=== PATIENT | female | born 1950 | race African-American/Black ===

== ENCOUNTER 2018-05-17 10:16 | Outpatient (RCR) | payer BC, MEDICARE, SELFPAY | END 2018-06-22 13:21 | disposition home or self-care (01) | LOC: PT 10:16 | PROVIDERS: Visit Provider Internal Medicine Cardiovascular Disease | DX: I25.10 Atherosclerotic heart disease of native coronary artery without angina pectoris (principal) | CPT/HCPCS: 93798 ==

== ENCOUNTER → 2018-06-06 14:04 | Outpatient (CLI) | payer BC, SELFPAY ==
--- NOTE | 2018-06-06 | CA_ITS ---
PROCEDURE: 2-D M-mode and color Doppler study INDICATIONS FOR THE TEST: Chest pain COPD Heart Murmur+ Tobacco Smoking Palpitations Fatigue Syncope Edema Hypertension+Diabetes Mellitus+ Rheumatic Fever SOB+MCCALLUM Obesity Hyperlipidemia+ Family History HD+ Additional History CAD, MV repair & TV repair done 02/2018 PATIENT INFORMATION HEIGHT: 62 WEIGHT: 157 GENDER: Female B/P: 130/86 2-D/M-MODE INTERPRETATION: 2-D MEASUREMENTS OBSERVED VALUES IN CMS Right Ventricular Dimension (RVDd) 2.6 Interventricular Septum (Thickness)(IVsd) 1.1 Left Ventricular Internal Dimensions(LVIDd) 5.4 Left Ventricular Posterior Wall (Thickness)(LVPWd) 1.0 Aortic Root 2.3 Aortic Cusp Separation 1.8 Left Atrial Dimensions (LAD) 4.4 2D 1. Left atrium is moderately enlarged, left ventricle is mildly dilated, there is severely reduced left ventricular systolic, visually estimated ejection fraction approximately 25%, left ventricle is globally hypokinetic, there is abnormal septal motion. 2. The right atrium is mildly enlarged, right ventricle is mildly dilated with normal contractility. 3. The aortic valve is thickened and calcified leaflet continue to display mobility. 4. There is mitral valve ring seen in the mitral position. 5. There is tricuspid annuloplasty ring present in tricuspid position 6. The pulmonic valve is poorly visualized. 7. No significant pericardial effusion noted. DOPPLER INTERROGATION: 1. The aortic outflow velocities within normal range, there is no aortic stenosis, there is aortic insufficiency present which is difficult to quantify, this is likely [id number] range. 2. The mitral inflow velocity across the valve is 1.89 m/s, resulting in a mean gradient across valve of 16 mmHg, the valve area is calculated by pressure half time is not indicated significant mitral inflow obstruction, there is severe mitral regurgitation. 3. The tricuspid inflow velocity within normal range, there is no tricuspid inflow obstruction, there is moderate tricuspid regurgitation, calculated right ventricular systolic pressure is 55 mmHg consistent with moderate pulmonary hypertension. Inferior vena cava is not well visualized. 4. Tissue Doppler is indicated of raised left atrial pressure. CONCLUSION: 1. Biatrial enlargement, dilated left ventricle, severely reduced left ventricular systolic function, visually estimated ejection fraction of 25%, left ventricle is globally hypokinetic, there is abnormal septal motion. Doppler evidence of raised left atrial pressure. 2. Status post mitr
[2018-06-06 15:29] LABS: Anion Gap 14.8 mEq/L (5-15); Blood Urea Nitrogen 40 mg/dL (7-18); Calcium 9.2 mg/dL (8.5-10.1); Carbon Dioxide 28 mmol/L (21.0-32.0); Chloride 98 mmol/L (98-107); Creatinine,Serum 1.94 mg/dL (0.55-1.02); Estimated Glomerular Filt Rate 26 ml/min (>60); GFR (African American) 31 ML/MIN (>60); Glucose 277 mg/dL (74-106); Potassium 4.8 mmoL/L (3.5-5.1); Sodium 136 mmol/L (136-145)
== END ==
PROVIDERS: Nurse Practitioner; PCP Internal Medicine; Visit Provider Thoracic Surgery (Cardiothoracic Vascular Surgery)
DX: I48.2 Chronic atrial fibrillation (principal); I50.42 Chronic combined systolic (congestive) and diastolic (congestive) heart failure; I38 Endocarditis, valve unspecified
CPT/HCPCS: 36415; 80048; 83880; 93306

== ENCOUNTER 2022-04-05 05:20 | Emergency (ER) | payer MEDICARE, BC, SELFPAY ==
--- NOTE | 2022-04-05 05:28 | XR_ITS ---
PROCEDURE INFORMATION: Exam: XR Right Wrist Exam date and time: 04/05/2022 5:59 AM Age: 71 years old Clinical indication: Pain; Wrist; Right; Additional info: Fall TECHNIQUE: Imaging protocol: Radiologic exam of the Right wrist. Views: 3 or more views. COMPARISON: No relevant prior studies available. FINDINGS: Bones/joints: No acute fracture or dislocation is noted. Soft tissues: Calcifications of the cartilage are noted. IMPRESSION: No fracture or dislocation.
--- NOTE | 2022-04-05 05:28 | XR_ITS ---
PROCEDURE INFORMATION: Exam: XR Right Shoulder Exam date and time: 04/05/2022 5:59 AM Age: 71 years old Clinical indication: Pain; Shoulder; Right; Additional info: Fall TECHNIQUE: Imaging protocol: Radiologic exam of the Right shoulder. Views: 2 or more views. COMPARISON: CT CERVICAL SPINE WO CON 04/05/2022 5:44 AM FINDINGS: Bones/joints: Normal. Soft tissues: Normal. IMPRESSION: No acute findings.
--- NOTE | 2022-04-05 05:31 | CT_ITS ---
PROCEDURE INFORMATION: Exam: CT Cervical Spine Without Contrast Exam date and time: 04/05/2022 5:44 AM Age: 71 years old Clinical indication: Neck pain; Additional info: Fall TECHNIQUE: Imaging protocol: Computed tomography of the cervical spine without contrast. Radiation optimization: All CT scans at this facility use at least one of these dose optimization techniques: automated exposure control; mA and/or kV adjustment per patient size (includes targeted exams where dose is matched to clinical indication); or iterative reconstruction. COMPARISON: CT HEAD/BRAIN WO CON 04/05/2022 5:42 AM FINDINGS: Bones/joints: Diffuse cervical spondylosis is noted. Hypertrophic changes of the facet present bilaterally. Discs/Spinal canal/Neural foramina: Narrowing of multiple intervertebral disc spaces are seen. Moderate neural foraminal narrowing is also noted. Lungs: Lung apices are normal. Vasculature: No obvious traumatic injury is seen. Carotid atherosclerosis is present. Soft tissues: Unremarkable. IMPRESSION: 1. No evidence of acute traumatic injury. 2. Diffuse cervical spondylosis. 3. Carotid atherosclerosis is present.
--- NOTE | 2022-04-05 05:31 | CT_ITS ---
PROCEDURE INFORMATION: Exam: CT Head Without Contrast Exam date and time: 04/05/2022 5:42 AM Age: 71 years old Clinical indication: Pain; Other: Fall; Additional info: Head injury to right forehead , fall TECHNIQUE: Imaging protocol: Computed tomography of the head without contrast. Radiation optimization: All CT scans at this facility use at least one of these dose optimization techniques: automated exposure control; mA and/or kV adjustment per patient size (includes targeted exams where dose is matched to clinical indication); or iterative reconstruction. COMPARISON: No relevant prior studies available. FINDINGS: Brain: There is diffuse prominence of the cerebral sulci, cisterns, and ventricles consistent with atrophy. No intra or extra-axial fluid collections are noted. No mass or mass effect is seen. Periventricular white matter hypoattenuation is seen consistent with small vessel chronic ischemic changes. Cerebral ventricles: No ventriculomegaly. Paranasal sinuses: Visualized sinuses are unremarkable. No fluid levels. Mastoid air cells: Visualized mastoid air cells are well aerated. Bones/joints: Unremarkable. No acute fracture. Soft tissues: Large right periorbital hematoma. IMPRESSION: 1. No acute intracranial process noted. 2. Prominent right perio hematoma. rbital
--- NOTE | 2022-04-05 05:32 | HMH.EDGENADL ---
Discharge Plan Disposition Patient Disposition: Home, Self-Care Chief Complaint: Fall Prescriptions Prescriptions: No Action atorvastatin 40 mg tablet 40 mg PO DAILY Label Comments: TAKE 1 TABLET BY MOUTH ONCE DAILY AT NIGHT carvedilol 12.5 mg tablet 12.5 mg PO DAILY Label Comments: TAKE 1 TABLET BY MOUTH TWICE DAILY azithromycin 250 mg tablet 250 mg PO DAILY Label Comments: TAKE 2 TABLETS BY MOUTH ON DAY 1, AND THEN TAKE 1 TABLET BY MOUTH ONCE A DAY ON DAY 2 THROUGH DAY 5 levothyroxine 75 mcg tablet 75 mcg PO DAILY Label Comments: TAKE 1 TABLET BY MOUTH ONCE DAILY IN THE MORNING folic acid 1 mg tablet 1 mg PO DAILY Label Comments: TAKE 1 TABLET BY MOUTH ONCE DAILY duloxetine 60 mg capsule,delayed release(DR/EC) 60 mg PO DAILY Label Comments: TAKE 1 CAPSULE BY MOUTH ONCE DAILY Farxiga 5 mg tablet 5 mg PO DAILY Label Comments: TAKE 1 TABLET BY MOUTH ONCE DAILY Trulicity 1.5 mg/0.5 mL pen injector 1.5 mg SQ WEEKLY Label Comments: INJECT 1 SYRINGE SUBCUTANEOUSLY ONCE A WEEK Lagevrio (EUA) 200 mg capsule 200 mg PO BID Label Comments: TAKE 4 CAPSULES BY MOUTH EVERY 12 HOURS FOR 5 DAYS aspirin 325 mg Tablet 325 mg PO DAILY ferrous sulfate 325 mg (65 mg iron) Tablet 325 mg PO DAILY insulin lispro [Humalog Pen] 100 unit/mL Insulin Pen 5 unit SQ TID ezetimibe 10 mg Tablet 10 mg PO DAILY Referrals Follow up/Referrals: Hal Rodriguez MD [Primary Care Provider] - See instructions Clinical Impressions Clinical Impression: Fall, Hematoma, Multiple contusions Instructions Patient Instructions: DI for Hematoma (Bruise), DI for Contusion, DI for Closed Head Injury Discharge ED Provider: Daljit Abad General Adult HPI General Chief complaint: Fall Stated complaint: AO 04/05/22 05:00 Injury to head and right shoulde Time Seen by Provider: 04/05/22 05:27 History of Present Illness HPI narrative: 71-year-old female has history of atrial fibrillation is just on aspirin, no anticoagulants and not on Plavix. She presents status post fall after getting up to go to the bathroom tonight had a coughing spell and woke up on the floor having struck her head. She denies any subsequent change in vision, neck pain, numbness or tingling, nausea or vomiting. She is ambulatory at baseline after the fall. She does report some pain in the right shoulder region and the right thenar eminence where she fell. She states episode happened just prior to arrival, and there have been no treatments prior to her assessment Related Data Home Medications Medication Instructions Recorded Confirmed aspirin 325 mg tablet 325 mg PO DAILY heart health 04/05/22 04/05/22 atorvastatin 40 mg tablet 40 mg PO DAILY High cholesterol 04/05/22 04/05/22 azithromycin 250 mg tablet 250 mg PO DAILY covid 04/05/22 04/05/22 carvedilol 12.5 mg tablet 12.5 mg PO DAILY htn 04/05/22 04/05/22 dapagliflozin 5 mg tablet (Farxiga) 5 mg PO DAILY Diabetes 04/05/22 04/05/22 dulaglutide 1.5 mg/0.5 mL 1.5 mg SQ WEEKLY Diabetes 04/05/22 04/05/22 subcutaneous pen injector (Trulicity) duloxetine 60 mg capsule,delayed 60 mg PO DAILY nerve pain 04/05/22 04/05/22 release ezetimibe 10 mg tablet 10 mg PO DAILY High cholesterol 04/05/22 04/05/22 ferrous sulfate 325 mg (65 mg 325 mg PO DAILY Supplement 04/05/22 04/05/22 iron) tablet folic acid 1 mg tablet 1 mg PO DAILY Supplement 04/05/22 04/05/22 insulin lispro 100 unit/mL 5 unit SQ TID dm 04/05/22 04/05/22 subcutaneous pen levothyroxine 75 mcg tablet 75 mcg PO DAILY hypothyroidism 04/05/22 04/05/22 molnupiravir 200 mg capsule (EUA) 200 mg PO BID covid 04/05/22 04/05/22 (Lagevrio) Allergies Allergy/AdvReac Type Severity Reaction Status Date / Time Penicillins Allergy Swelling Verified 04/05/22 05:44 of Lip/Tongue/Throat pregabalin [From Lyrica] Allergy Harriet
[2022-04-05 05:38] VITALS: BP 139/85; PULSE 78; RESP 18; TEMP 36.8; O2SAT 98; BMI 31.8
--- NOTE | 2022-04-05 05:38 | PC.NURSE ---
Pt gone to RAD via stretcher
--- NOTE | 2022-04-05 05:53 | PC.NURSE ---
Pt back from RAD
[2022-04-05 06:39] VITALS: BP 140/83; PULSE 80; RESP 18; TEMP 36.6; O2SAT 99
== END 2022-04-05 06:42 | disposition home or self-care (01) ==
PROVIDERS: Emergency Provider Emergency Medicine; PCP Internal Medicine
DX: S09.8XXA Other specified injuries of head, initial encounter (principal); W19.XXXA Unspecified fall, initial encounter; I48.91 Unspecified atrial fibrillation; Z79.82 Long term (current) use of aspirin; S00.83XA Contusion of other part of head, initial encounter
CPT/HCPCS: 70450; 72125; 73030; 73110; 99285

== ENCOUNTER 2023-03-20 19:36 | Emergency (ER) | payer MEDICARE, BC, SELFPAY ==
[2023-03-20] VITALS (9 sets, daily range): BP systolic 113–170; BP diastolic 66–106; PULSE 73–88; RESP 18–20; TEMP 36.3–36.7; O2SAT 95–100; BMI 31.6
--- NOTE | 2023-03-20 19:54 | ECG_ITS ---
APPROVED REPORT Exam: Resting ECG HR:85 bpm ECG Measurements Heart Rate 85 AXES IN 143 P 29 QRSd 154 QRS 142 QT 434 T 32 QTc 476 Conclusion ELECTRONIC VENTRICULAR PACEMAKER ABNORMAL RHYTHM ECG UNCONFIRMED REPORT Electronically signed by : Blake Graham MD 03/21/2023 08:23:26
--- NOTE | 2023-03-20 19:55 | XR_ITS ---
PROCEDURE INFORMATION: Exam: XR Chest Exam date and time: 03/20/2023 8:08 PM Age: 72 years old Clinical indication: Other: Weakness TECHNIQUE: Imaging protocol: Radiologic exam of the chest. Views: 2 views. COMPARISON: CR XR SHOULDER RT MIN 2V 04/05/2022 5:59 AM FINDINGS: Tubes, catheters and devices: Left subclavian transvenous triple lead pacemaker is in expected position. Lungs: Right upper lobe granulomas, otherwise clear lungs. Pleural spaces: No pleural effusion. No pneumothorax. Heart/Mediastinum: Mitral annulus noted. Heart size is normal. Bones/joints: Age appropriate. IMPRESSION: No acute cardiopulmonary abnormality.
--- NOTE | 2023-03-20 20:11 | ED_ITS ---
Discharge Plan Disposition Chief Complaint: Nausea/Vomiting/Diarrhea Prescriptions Prescriptions: New promethazine 12.5 mg tablet 12.5 mg PO Q6H PRN (Reason: nausea) Qty: 16 0RF No Action atorvastatin 40 mg tablet 40 mg PO DAILY Patient Comments: TAKE 1 TABLET BY MOUTH ONCE DAILY AT NIGHT carvedilol 12.5 mg tablet 12.5 mg PO DAILY Patient Comments: TAKE 1 TABLET BY MOUTH TWICE DAILY azithromycin 250 mg tablet 250 mg PO DAILY Patient Comments: TAKE 2 TABLETS BY MOUTH ON DAY 1, AND THEN TAKE 1 TABLET BY MOUTH ONCE A DAY ON DAY 2 THROUGH DAY 5 levothyroxine 75 mcg tablet 75 mcg PO DAILY Patient Comments: TAKE 1 TABLET BY MOUTH ONCE DAILY IN THE MORNING folic acid 1 mg tablet 1 mg PO DAILY Patient Comments: TAKE 1 TABLET BY MOUTH ONCE DAILY duloxetine 60 mg capsule,delayed release(DR/EC) 60 mg PO DAILY Patient Comments: TAKE 1 CAPSULE BY MOUTH ONCE DAILY Farxiga 5 mg tablet 5 mg PO DAILY Patient Comments: TAKE 1 TABLET BY MOUTH ONCE DAILY Trulicity 1.5 mg/0.5 mL pen injector 1.5 mg SQ WEEKLY Patient Comments: INJECT 1 SYRINGE SUBCUTANEOUSLY ONCE A WEEK Lagevrio (EUA) 200 mg capsule 200 mg PO BID Patient Comments: TAKE 4 CAPSULES BY MOUTH EVERY 12 HOURS FOR 5 DAYS aspirin 325 mg Tablet 325 mg PO DAILY ferrous sulfate 325 mg (65 mg iron) Tablet 325 mg PO DAILY insulin lispro [Humalog Pen] 100 unit/mL Insulin Pen 5 unit SQ TID ezetimibe 10 mg Tablet 10 mg PO DAILY Referrals Follow up/Referrals: Hal Rodriguez MD [Primary Care Provider] - See instructions Clinical Impressions Clinical Impression: Acute viral syndrome, Nausea Discharge ED Provider: Dakota Sanabria General Adult HPI General Chief complaint: Nausea/Vomiting/Diarrhea Stated complaint: weak vomiting Time Seen by Provider: 03/20/23 20:01 Mode of Arrival: Family Vehicle Source of Information: Patient Limitations: No Limitations Description of Symptoms (Recalled from ER Triage Doc. by RN): 72 yo female with n/v x 2days, now accompanied by general weakness. States dizziness incr with position change. Decreased PO intake. Denies abd pain, angina, dyspnea. Denies diaphoresis. Denies fever. Denies diarrhea. IDDM. FSBS 127mg/dl per continuous monitor History of Present Illness HPI narrative: Patient is a 72-year-old female with past medical history of previous heart surgery and pacemaker placement, insulin-dependent diabetes, hypertension who presents emergency department for evaluation of vomiting. Onset was acute, over the last 48 hours. No abdominal pain, no chest pain. There is associated mild cough. Vomiting is nonbloody. Sick contacts at home. No other acute complaints at this time. Related Data Home Medications Medication Instructions Recorded Confirmed aspirin 325 mg tablet 325 mg PO DAILY heart health 04/05/22 04/05/22 atorvastatin 40 mg tablet 40 mg PO DAILY High cholesterol 04/05/22 04/05/22 azithromycin 250 mg tablet 250 mg PO DAILY covid 04/05/22 04/05/22 carvedilol 12.5 mg tablet 12.5 mg PO DAILY htn 04/05/22 04/05/22 dapagliflozin propanediol 5 mg 5 mg PO DAILY Diabetes 04/05/22 04/05/22 tablet (Farxiga) dulaglutide 1.5 mg/0.5 mL 1.5 mg SQ WEEKLY Diabetes 04/05/22 04/05/22 subcutaneous pen injector (Trulicity) duloxetine 60 mg capsule,delayed 60 mg PO DAILY nerve pain 04/05/22 04/05/22 release ezetimibe 10 mg tablet 10 mg PO DAILY High cholesterol 04/05/22 04/05/22 ferrous sulfate 325 mg (65 mg 325 mg PO DAILY Supplement 04/05/22 04/05/22 iron) tablet folic acid 1 mg tablet 1 mg PO DAILY Supplement 04/05/22 04/05/22 insulin lispro 100 unit/mL 5 unit SQ TID dm 04/05/22 04/05/22 subcutaneous pen levothyroxine 75 mcg tablet 75 mcg PO DAILY hypothyroidism 04/05/22 04/05/22 molnupiravir 200 mg capsule (EUA) 200 mg PO BID covid 04/05/22 04/05/22 (Lagevrio) Previous Rx's Medication Instructions Recorded promethazine 12.5 mg tablet 12.5 mg PO Q6H PRN nausea #16 tabs 03/20/23 Allergies Allergy/AdvReac Type Severity Reaction Status Date / Time Penicillins Allergy Swelling Verified 04/05/22 05:44 of Lip/Tongue/Throat pregabalin [From Lyrica] Allergy Swelling Verified 04/05/22 05:44 of Lip/Tongue/Throat PFSH PFSH Disclaimer: The information contained in this section may have been updated after the patient was seen, as this information can be updated by other users. Social History (Updated 04/05/22 @ 06:13 by Daljit Abad MD) Smoking Status: Unknown if ever smoked alcohol intake: never current occupational status: other Travel in the last 8 weeks: None ROS Obtained: Yes Systems reviewed as appropriate & no additional complaints except as documented Physical Exam General General appearance: alert and in no apparent distress Head Head exam: atraumatic and normocephalic Eye Eye exam: Present PERRL and EOMI ENT ENT exam: Present mucous membranes moist Neck Neck exam: Present normal inspection Chest Chest inspection: Present normal inspection and symmetric chest wall rise Respiratory Respiratory exam: Present normal lung sounds bilaterally; Absent respiratory distress Cardiovascular Cardiovascular exam: Present regular rate and normal rhythm Abdominal Exam Abdominal exam: Present soft; Absent tenderness Extremities Exam Extremities exam: Present normal inspection Neurological Exam Neurological exam: Present alert Psychiatric Psychiatric exam: Present normal affect Skin Skin exam: Present warm and dry Medical Decision Making Darin Inquiry Pt receiving controlled substance: No Vital Signs: 03/20/23 19:49 03/20/23 20:00 03/20/23 20:30 Temperature 97.4 F L Temperature Source Oral Pulse Rate 86 80 Pulse Rate [Right Brachial] 79 Respiratory Rate 19 20 18 Blood Pressure 170/98 H 167/106 H Blood Pressure [Right Arm] 170/100 H Blood Pressure Mean 120 118 Blood Pressure Mean [Right Arm] 123 Blood Pressure Source [Right Arm] Automatic Cuff Blood Pressure Position [Right Arm] Sitting 02 Sat by Pulse Oximetry 96 99 100 Oxygen Delivery Method Room Air Room Air Room Air 03/20/23 21:00 03/20/23 21:31 Temperature Temperature Source Pulse Rate 81 81 Pulse Rate [Right Brachial] Respiratory Rate 20 18 Blood Pressure 167/106 H 150/84 H Blood Pressure [Right Arm] Blood Pressure Mean 119 113 Blood Pressure Mean [Right Arm] Blood Pressure Source [Right Arm] Blood Pressure Position [Right Arm] 02 Sat by Pulse Oximetry 100 100 Oxygen Delivery Method Room Air Room Air Lab Data Lab Results 03/20/23 19:56: SARS-CoV-2 (PCR) Not detected, Influenza A Untype (PCR) Not detected, Influenza Type B (PCR) Not detected 03/20/23 20:14: WBC 9.5, RBC 4.37, Hgb 13.6, Hct 41.0, MCV 93.9, MCH 31.0, MCHC 33.0, RDW 13.1, Plt Count 338, MPV 8.1, Neut % (Auto) 75.3, Lymph % (Auto) 17.2, [place] % (Auto) 5.5, Eos % (Auto) 1.4, Baso % (Auto) 0.5, Neut # (Auto) 7.2, Lymph # (Auto) 1.6, [place] # (Auto) 0.5, Eos # (Auto) 0.1, Baso # (Auto) 0.1, Sodium 140, Potassium 3.7, Chloride 103, Carbon Dioxide 30, Anion Gap 10.7, BUN 21 H, Creatinine 1.90 H, Estimated Creat Clear 33, Estimated GFR 26 L, Est GFR ( Amer) 31 L, Glucose 121 H, Calcium 9.2, Total Bilirubin 1.0, AST 27, ALT 19, Alkaline Phosphatase 131 H, Troponin I < 0.01, Total Protein 8.0, Albumin 4.0, Globulin 4.0 H, Albumin/Globulin Ratio 1.0 L, Lipase 48 03/20/23 22:25: Urine Color Yellow, Urine Appearance Clear, Urine pH 6.0, Ur Specific [place] 1.025, Urine Protein 2+, Urine Glucose (UA) 2+, Urine Ketones Negative, Urine Blood Negative, Urine Nitrate Negative, Urine Bilirubin 1+ A, Urine Urobilinogen 1.0, Ur Leukocyte Esterase Negative, Urine RBC Occasional, Urine WBC None, Ur Squamous Epith Cells 3-5, Urine Bacteria Trace 03/20/23 20:14 03/20/23 20:14 Orders (Tests/Meds): ED MEDICATIONS Discontinued Medications Generic Name Dose Route Start Last Admin Trade Name Freq PRN Reason Stop Dose Admin Lactated Ringer's 1,000 mls @ 999 mls/hr 03/20/23 19:56 03/20/23 20:49 Lactated Ringer's 1000 Ml Bag IV 03/20/23 20:56 999 mls/hr .Q1H1M ONE Administration Ondansetron HCl 4 mg 03/20/23 20:15 03/20/23 20:52 Ondansetron 4mg/2ml Vial IV 03/20/23 20:16 4 mg ONCE ONE Administration Promethazine HCl 12.5 mg 03/20/23 21:31 03/20/23 21:38 Promethazine Hcl 25mg/Ml 1ml Vial IV 03/20/23 21:32 12.5 mg ONCE ONE Administration Sodium Chloride 25 ml 03/20/23 21:31 03/20/23 21:38 Sodium Chloride 0.9% 25ml Bag IV 03/20/23 21:32 25 ml ONCE ONE Administration ORDERS Category Date Time Status Chest XR 2 view (NOT portable) [XR chest 2V] Stat Exams 03/20/23 19:55 Completed Complete Blood Count Auto Diff Stat Lab 03/20/23 20:14 Completed Comprehensive Metabolic Panel Stat Lab 03/20/23 20:14 Completed Lipase Stat Lab 03/20/23 20:14 Completed Rapid PCR Covid and Flu A/B Stat Lab 03/20/23 19:56 Completed Troponin I Q3H Lab 03/21/23 02:00 Ordered Troponin I Q3H Lab 03/20/23 23:00 Ordered Troponin I Stat Lab 03/20/23 20:14 Completed Urinalysis and Microscopic Stat Lab 03/20/23 22:25 Completed ECG Data Tracing #1: Independently interpreted by me, rate is 85, rhythm is regular, ventricular paced, no excessive discordance, no concordant ST changes, QTc 476. Medical Decision Narrative: In summary patient is a 72-year-old female with past medical history described above who presents emergency department for evaluation of vomiting. Patient is hemodynamically stable nontoxic-appearing upon arrival, afebrile. Patient has a benign abdominal exam. Differential includes viral syndrome, COVID, influenza, pancreatitis, among others. Workup will be conducted with hematologic labs, viral swab. Initial inventions include crystalloid bolus, Zofran. CT imaging of the abdomen pelvis was considered however given the patient has a benign abdominal exam will be deferred. Workup reviewed by me, hematologic labs are nonactionable, stable CKD, no critical electrolyte abnormalities, initial troponin below detectable limit. COVID and influenza negative. Repeat evaluation patient had persistent nausea for which Phenergan will be administered. Chest x-ray informally interpreted by me, no acute lobar opacity or large pneumothorax, formal read shows no acute cardiopulmonary abnormality. Upon repeat evaluation patient had a nonfocal neurologic exam. Patient has presumed viral syndrome, underwent p.o. trial was successful. Given this patient will be discharged with a course of Phenergan and was given return precautions. Critical Care Critical Care Time Critical Care Time: No
[2023-03-20 20:21] LABS: Coronavirus 19, PCR Not Detected (NotDetected); Influenza A, PCR Not Detected (NotDetected); Influenza B, PCR Not Detected (NotDetected)
[2023-03-20 20:23] LABS: Basophils # 0.1 K/mm3 (0-0.2); Basophils % 0.5 % (0.1-2.0); Eosinophils # 0.1 K/mm3 (0.0-0.4); Eosinophils % 1.4 % (0.1-12.0); Hemoglobin 13.6 g/dL (12.2-16.2); Lymphocytes # 1.6 K/mm3 (0.7-4.5); Lymphocytes % 17.2 % (10-50); Mean Corpuscular Volume 93.9 fl (81-99); Mean Platelet Volume 8.1 fl (7.4-10.4); Monocytes # 0.5 K/mm3 (0.1-1.0); Monocytes % 5.5 % (1.7-9.3); Neutrophils # 7.2 K/mm3 (1.8-7.8); Neutrophils % 75.3 % (37.0-80.0); Platelet Count 338 K/mm3 (142-424); Red Blood Count 4.37 M/mm3 (4.20-5.40); Red Cell Distribution Width 13.1 % (11.5-17.5); White Blood Count 9.5 K/mm3 (4.8-10.8)
[2023-03-20 20:26] LABS: Chloride 103 mmol/L (98-107); Potassium 3.7 mmoL/L (3.5-5.1); Sodium 140 mmol/L (136-145)
[2023-03-20 20:28] LABS: Blood Urea Nitrogen 21 mg/dl (7-17); Creatinine Clearance Estimated 33 mL/min (50-200); Estimated Glomerular Filt Rate 26 ml/min (>60); GFR (African American) 31 ML/MIN (>60)
[2023-03-20 20:29] LABS: Alanine Aminotransferase 19 U/L (12-78); Alkaline Phosphatase 131 U/L (38-126); Anion Gap 10.7 mEq/L (5-15); Aspartate Amino Transferase 27 U/L (14-36); Calcium 9.2 mg/dl (8.4-10.2); Carbon Dioxide 30 mmol/L (22.0-30.0); Glucose 121 mg/dl (74-100); Lipase 48 U/L (23-300)
[2023-03-20 20:42] LABS: Troponin I < 0.01 ng/ml (0.00-0.034)
[2023-03-20] MEDS: LACTATED RINGERS 1000ML 1,000 ML 999 ML IV (20:49)
[2023-03-20] MEDS: ONDANSETRON 4MG/2ML VIAL 4 MG IV (20:52)
[2023-03-20] MEDS: PROMETHAZINE HCL 25MG/ML 1ML VIAL 12.5 MG IV (21:38)
[2023-03-20] MEDS: SODIUM CHLORIDE 0.9% 25ML BAG 25 ML IV (21:38)
[2023-03-20 22:29] LABS: Microscopic, Urine URINE MICROSCOPIC (MICROSCOPIC)
[2023-03-20 22:39] LABS: Appearance,Urine CLEAR (Clear); Blood, Urine Negative (Negative); Color,Urine YELLOW (Yellow); Glucose,Urine (UA) 2+ (Negative); Ketones,Urine Negative (Negative); Leukocyte Esterase,Urine Negative (Negative); Nitrate,Urine Negative (Negative); Protein,Urine 2+ (Negative); Specific Gravity, Urine 1.025 (1.005-1.030)
[2023-03-20 22:50] LABS: Bilirubin,Urine 1+ (Negative)
[2023-03-20 22:55] LABS: Bacteria,Urine Trace /lpf; RBC,Urine Occasional #/hpf (0-3)
== END 2023-03-20 23:28 | disposition home or self-care (01) ==
PROVIDERS: Emergency Provider Emergency Medicine; PCP Internal Medicine
DX: R11.2 Nausea with vomiting, unspecified (principal); R53.1 Weakness; R05.9 Cough, unspecified; B34.9 Viral infection, unspecified; E11.9 Type 2 diabetes mellitus without complications; I10 Essential (primary) hypertension; Z95.0 Presence of cardiac pacemaker
CPT/HCPCS: 71046; 80053; 81001; 83690; 84484; 85025; 87636; 93005; 96361; 96374; 96375; 99285; J2405